=== PATIENT | female | born 1970 ===

== ENCOUNTER 2017-02-20 10:34 | Day surgery (SDC) | payer OTHER ==
[2017-02-20 12:12] VITALS: BMI 34.9
[2017-02-20] MEDS ORDERED: PROPOFOL 20 ML ONE (13:04)
[2017-02-20 13:47] VITALS: TEMP 95
[2017-02-20 14:21] VITALS: BP 114/61; PULSE 61
--- NOTE | 2017-02-21 15:00 | PATH ---
Surgical Pathology Report Patient Name: VICTOR M HERNÁNDEZ [facility]. Rec. #: [id number] /Age/Gender: 1970 (Age: 46) / F Account: [id number] Location: [facility]-ENDOSCOPY Taken: 02/20/2017 Received: 02/20/2017 Reported: 02/21/2017 Physicians: Matt Sarabia M.D. Specimen(s) Received A: BX GASTRIC BODY B: BX MID-ESOPHAGUS Clinical History Epigastric pain, early satiety, persistent GERD Hiatal hernia, gastritis Final Diagnosis A. STOMACH, BODY, BIOPSY: GASTRIC FUNDIC MUCOSA WITH RARE PLASMA CELLS WITHIN LAMINA PROPRIA. NO ACTIVE GASTRITIS IDENTIFIED. IMMUNOSTAIN FOR H. PYLORI IS NEGATIVE. B. MID ESOPHAGUS, BIOPSY: SQUAMOUS EPITHELIUM WITH NO PATHOLOGIC CHANGES. NO EOSINOPHILIC ESOPHAGITIS IDENTIFIED. Electronically Signed Will Lima M.D. Gross Description A. Received in formalin, labeled "biopsy gastric body" are 2 eldridge, irregular portions of soft tissue measuring 0.2 and 0.4 cm. in greatest dimension. The specimens are submitted in toto in one cassette. B. Received in formalin, labeled "biopsy midesophagus" is a eldridge, irregular portion of soft tissue measuring 0.5 cm. in greatest dimension. The specimen is submitted in toto in one cassette. 02/20/201702/20/2017
== END 2017-02-20 14:42 | disposition home or self-care (01) ==
LOC: JASU-ENDO 10:34
PROVIDERS: ATTEND Internal Medicine Gastroenterology
PROC: 0DB68ZX Excision of Stomach, Via Natural or Artificial Opening Endoscopic, Diagnostic (ICD-10-PCS; principal; 2017-02-20 11:30)
DX: R10.13 Epigastric pain (principal)
CPT/HCPCS: 84703; 88305-TC; 88342-TC